=== PATIENT | female | born 1995 | race African-American/Black ===

== ENCOUNTER 2018-04-19 10:56 | Emergency (ER) | payer OTHER ==
[~2018-04-19] VITALS: Ht 160 cm; Wt 113.0 kg
[2018-04-19] MEDS ORDERED: PRENATAL PO (11:03)
[2018-04-19 11:42] LABS: URINE BILIRUBIN NEGATIVE (Negative); URINE BLOOD NEGATIVE (Negative); URINE CLARITY CLOUDY; URINE COLOR YELLOW; URINE GLUCOSE-RANDOM* NEGATIVE (Negative); URINE KETONES NEGATIVE (Negative); URINE LEUKOCYTES-REFLEX TRACE (Negative); URINE NITRITE-REFLEX NEGATIVE (Negative); URINE PROTEIN (DIPSTICK) NEGATIVE (Negative); URINE SPECIFIC GRAVITY >= 1.030 (1.005-1.035); URINE UROBILINOGEN 0.2 E.U./dl (0.2-1.0)
[2018-04-19 11:59] VITALS: BP 121/75
== END 2018-04-19 12:00 | disposition home or self-care (01) ==
LOC: ER 10:56
PROVIDERS: Nurse Practitioner Family
DX: O26.892 Other specified pregnancy related conditions, second trimester (principal); R10.2 Pelvic and perineal pain; Z98.890 Other specified postprocedural states; Z3A.00 Weeks of gestation of pregnancy not specified